=== PATIENT | female | born 1980 | race Caucasian/White ===

== ENCOUNTER 2019-04-11 18:24 | Emergency (ER) | payer OTHER ==
[~2019-04-11] VITALS: Ht 154.9 cm; Wt 73.9 kg
[2019-04-11] MEDS ORDERED: PROZAC20 MG (18:33)
[2019-04-11] MEDS ORDERED: LEVOTHYROXINE25 MCG (18:33)
[2019-04-11] MEDS ORDERED: VYVANSE50 MG (18:34)
[2019-04-11] MEDS ORDERED: WELLBUTRIN (18:34)
[2019-04-11] MEDS ORDERED: DEXILANT60 MG (18:34)
[2019-04-11] MEDS ORDERED: TRAZODONE HCL50 MG (18:35)
[2019-04-11] MEDS ORDERED: CARAFATE1 GM (18:35)
[2019-04-11] MEDS ORDERED: CLONAZEPAM0.5 MG (18:35)
[2019-04-11] MEDS ORDERED: AMBIEN10 MG (18:35)
[2019-04-11] MEDS ORDERED: XANAFLEX (18:36)
[2019-04-11] MEDS ORDERED: ORENCIA125 MG/1 M (18:36)
[2019-04-11] MEDS ORDERED: TOPROL XL50 MG (18:36)
[2019-04-11] MEDS ORDERED: STOOL SOFTENER50 MG (18:37)
[2019-04-11] MEDS ORDERED: VALIUM (18:37)
== END 2019-04-11 21:44 | disposition home or self-care (01) ==
LOC: ER 18:24
DX: N83.291 Other ovarian cyst, right side (principal); N93.8 Other specified abnormal uterine and vaginal bleeding

== ENCOUNTER 2021-01-08 17:34 | Emergency (ER) | payer OTHER ==
[~2021-01-08] VITALS: Ht 154.9 cm; Wt 69.4 kg
[~2021-01-08 17:34] MED LIST: AMBIEN10 MG; CARAFATE1 GM; CLONAZEPAM0.5 MG; DEXILANT60 MG; LEVOTHYROXINE25 MCG; ORENCIA125 MG/1 M; PROZAC20 MG; STOOL SOFTENER50 MG; TOPROL XL50 MG; TRAZODONE HCL50 MG; VALIUM; VYVANSE50 MG; WELLBUTRIN; XANAFLEX
[2021-01-08] MEDS ORDERED: WELLBUTRIN XL150 M1 (17:59)
[2021-01-08] MEDS ORDERED: ZANAFLEX4 M1 (17:59)
[2021-01-08] MEDS ORDERED: TORADOL60 MG IM (20:28)
[2021-01-08] MEDS ORDERED: XYLOCAINE JELLY 221 TOP (20:28)
[2021-01-08] MEDS ORDERED: ORPHENADRI30 MG/1 M1 IJ (20:28)
[2021-01-08] MEDS ORDERED: NEOSPORIN OIN28.3 GM TOP (20:28)
== END 2021-01-08 21:17 | disposition home or self-care (01) ==
LOC: ER 17:34
DX: V95.8XXA Other powered aircraft accidents injuring occupant, initial encounter (principal)